=== PATIENT | female | born 1960 | race Caucasian/White ===

== ENCOUNTER → 2018-12-22 | Outpatient (CLI) | payer BC ==
[2018-12-22 12:40] LABS: GLUCOSE 81 mg/dL (75-110); TRIGLYCERIDES 86 mg/dL (<150)
[2018-12-22 12:51] LABS: DIRECT LDL 121 mg/dL (<100)
== END ==
LOC: OD 11:37
PROVIDERS: ATTEND Nurse Practitioner Acute Care
DX: Z00.00 Encounter for general adult medical examination without abnormal findings (principal)
CPT/HCPCS: 36415; 80061; 82947